=== PATIENT | male | born 1960 | race Caucasian/White ===

== ENCOUNTER 2021-10-06 07:48 | Emergency (ER) | payer OTHER ==
[~2021-10-06] VITALS: Ht 170.2 cm; Wt 104.0 kg
[2021-10-06 08:46] VITALS: BP 151/82
[2021-10-06] MEDS ORDERED: FLEXERIL5 M1 PO (08:47)
[2021-10-06 09:01] VITALS: BP 138/95
== END 2021-10-06 09:02 | disposition home or self-care (01) | DRG 204 ==
LOC: ED 07:48
DX: R07.81 Pleurodynia (principal); W55.22XA Struck by cow, initial encounter; Y92.79 Other farm location as the place of occurrence of the external cause; Y99.0 Civilian activity done for income or pay

== ENCOUNTER 2022-05-24 23:49 | Emergency (ER) | payer OTHER ==
[~2022-05-24] VITALS: Ht 170.2 cm; Wt 94.0 kg
[~2022-05-24 23:49] MED LIST: FLEXERIL5 M1 PO
[2022-05-25 00:46] VITALS: BP 133/76
[2022-05-25] MEDS ORDERED: WARFARIN2 MG PO (01:00)
[2022-05-25 01:01] VITALS: BP 107/71
[2022-05-25] MEDS ORDERED: TEGRETOL200 MG PO (01:01)
[2022-05-25] MEDS ORDERED: [UNRECOGNIZED DRUG - OTHER] (01:04)
[2022-05-25] MEDS ORDERED: CRESTOR20 MG PO (01:04)
[2022-05-25 02:00] VITALS: BP 105/66
[2022-05-25 02:23] VITALS: BP 105/66
== END 2022-05-25 02:23 | disposition home or self-care (01) | DRG 605 ==
LOC: ED 23:49
DX: S20.211A Contusion of right front wall of thorax, initial encounter (principal); Y93.K9 Activity, other involving animal care; Y92.79 Other farm location as the place of occurrence of the external cause; Y99.0 Civilian activity done for income or pay

== ENCOUNTER 2022-06-07 08:01 | Emergency (ER) | payer OTHER ==
[~2022-06-07] VITALS: Ht 170.2 cm; Wt 100.0 kg
[2022-06-07] VITALS (9 sets, daily range): BP systolic 126–203; BP diastolic 67–93
[~2022-06-07 08:01] MED LIST changes: +CRESTOR20 MG PO; +TEGRETOL200 MG PO; +WARFARIN2 MG PO; +[UNRECOGNIZED DRUG - OTHER]
[2022-06-07] MEDS ORDERED: HYDROCO/APAP1 TA9 PO (10:12)
== END 2022-06-07 10:37 | disposition home or self-care (01) | DRG 556 ==
LOC: ED 08:01
DX: M25.511 Pain in right shoulder (principal)

== ENCOUNTER 2024-06-25 10:58 | Emergency (ER) | payer OTHER ==
[~2024-06-25] VITALS: Ht 170.2 cm; Wt 100.0 kg
[~2024-06-25 10:58] MED LIST changes: +HYDROCO/APAP1 TA9 PO
[2024-06-25 11:19] VITALS: BP 174/79
[2024-06-25] MEDS ORDERED: PROPRANOLOL HYD40 MG (11:23)
[2024-06-25 12:01] VITALS: BP 122/70
[2024-06-25 12:30] VITALS: BP 116/69
[2024-06-25] MEDS ORDERED: LIDOcaine HCl 1% (Local Anesth.) 20 ML VIAL STI STA (12:33)
[2024-06-25] MEDS ORDERED: POVIDONE IODINE 0.5 OZ/BTL TOP ONE (12:35)
[2024-06-25] MEDS ORDERED: Diph, Acellular Pertussis, Tet 0.5 ML/VIAL (Tdap) SDV IM ONE (12:35)
[2024-06-25] MEDS ORDERED: NEOMYCIN-BACITRACIN-POLYMYXIN 0.5 GM/PAK PAK TOP ONE (12:35)
[2024-06-25] MEDS ORDERED: BUPIVACAINE HCL PF 0.5 % 50 MG/10 ML SDV STI ONE (12:35)
[2024-06-25] MEDS ORDERED: KEFLEX500 MG PO (13:09)
== END 2024-06-25 13:17 | disposition home or self-care (01) | DRG 605 ==
LOC: ED 10:58
PROC: 0HQGXZZ Repair Left Hand Skin, External Approach (ICD-10-PCS; principal; 2024-06-25)
DX: S61.211A Laceration without foreign body of left index finger without damage to nail, initial encounter (principal); W45.8XXA Other foreign body or object entering through skin, initial encounter; Y99.0 Civilian activity done for income or pay
CPT/HCPCS: 90715

== ENCOUNTER 2024-07-04 07:57 | Emergency (ER) | payer OTHER ==
[~2024-07-04] VITALS: Ht 170.2 cm; Wt 97.0 kg
[~2024-07-04 07:57] MED LIST changes: +KEFLEX500 MG PO; +PROPRANOLOL HYD40 MG
[2024-07-04 08:04] VITALS: BP 187/88
[2024-07-04 08:09] VITALS: BP 187/88
== END 2024-07-04 08:25 | disposition home or self-care (01) | DRG 950 ==
LOC: ED 07:57
DX: S61.211D Laceration without foreign body of left index finger without damage to nail, subsequent encounter (principal); X58.XXXD Exposure to other specified factors, subsequent encounter